=== PATIENT | female | born 1930 | race Two or more races ===

== ENCOUNTER 2017-06-06 14:15 | Observation (INO) | payer MEDICARE, OTHER ==
[2017-06-06] MEDS ORDERED: NS 0.9% 1000 ML* 1,000 ML IV ONE (14:55)
[2017-06-06] MEDS ORDERED: Diltiazem IV* 5 MG/ML 5 ML VIAL (for loading dose/IV Push) (25 MG) IV PUSH ONE (14:55)
[2017-06-06] MEDS ORDERED: Digoxin IV* 0.5 MG/2 ML AMP (0.25 MG/ML) IV ONE (14:55)
[2017-06-06 15:15] LABS: Hematocrit 39 % (35-47); Hemoglobin 12.8 g/dl (12.0-16.0); Mean Corpuscular HGB Conc 33 g/dl (31-36); Mean Corpuscular Hemoglobin 33 pg (27-31); Mean Corpuscular Volume 99 fL (80-97); Mean Platelet Volume 9 um3 (7.4-10.4); Red Blood Count 3.93 10^6/ul (4.0-5.4); Red Cell Distribution Width 14 % (10.5-15); White Blood Count 5.1 10^3/ul (3.5-10.8)
[2017-06-06 15:31] LABS: Albumin 3.6 g/dL (3.2-5.2); BUN/Creatinine Ratio 21.4 (8-20); Calcium 8.5 mg/dL (8.6-10.3); EGFR African American 82.9 (>60); EGFR Non-African American 64.4 (>60); Globulin 2.4 g/dL (2-4); Magnesium 1.8 mg/dL (1.9-2.7); Potassium 3.8 mmol/L (3.5-5.0); Total Bilirubin 0.9 mg/dL (0.2-1.0)
[2017-06-06 16:09] LABS: TSH (Thyroid Stimulating Horm) 5.15 mcIU/mL (0.34-5.60)
[2017-06-06] MEDS ORDERED: Diltiazem DRIP* 100 MG/100 ML ADDV.BAG IVPB ONE ×2 (16:09→16:10)
[2017-06-06] MEDS ORDERED: Enoxaparin(*) 60 MG/0.6 ML SYR SUBCUT ONE (16:37)
[2017-06-06] MEDS ORDERED: Ondansetron INJ* 2 MG/ML VIAL IV PRN (17:38)
[2017-06-06] MEDS ORDERED: Acetaminophen TAB* 325 MG PO PRN (17:38)
[2017-06-06] MEDS ORDERED: Magnesium Sulfate 2 GM IV* 2 GM/50 ML BAG IVPB ONE (17:38)
[2017-06-06] MEDS ORDERED: Diltiazem TAB* 30 MG ONE (17:47)
[2017-06-06] MEDS ORDERED: Diltiazem TAB* 30 MG PO SCH ×2 (18:00)
[2017-06-06] MEDS ORDERED: Diltiazem DRIP* 100 MG/100 ML ADDV.BAG IVPB SCH ×2 (18:00→19:00)
[2017-06-06 18:11] LABS: C Reactive Protein 1.13 mg/L (< 5.00)
[2017-06-06 18:34] LABS: Erythrocyte Sed Rate 5 mm/Hr (0-40)
--- NOTE | 2017-06-06 18:44 | RAD ---
INDICATION: Atrial fibrillation COMPARISON: February 10, 2011 TECHNIQUE: An AP portable view obtained at 1814 hours is submitted. FINDINGS: Bones/Soft Tissues: There are no acute bony findings. There is a scoliotic deformity. Cardiomediastinal: The cardiomediastinal silhouette is normal. Lungs: There are no infiltrates. Pleura: There are no pleural effusions. Other: None IMPRESSION: NO ACTIVE DISEASE.
[2017-06-06] MEDS: Potassium Chlor TAB* 20 MEQ TAB.ER PO ONE ×2 (19:47→20:38)
--- NOTE | 2017-06-06 20:15 | PN ---
Hospitalist Progress Note called for hr dropping to 50's, and having a 3 second pause also patient stating she feels flushed hr 67 now and irregular, flushing started with magnesium iv infusion, hold iv mag, hold dilt drip, hold po atenelol, for now, bp 109/60 stable, will follow closely,
[2017-06-06] MEDS ORDERED: Atenolol TAB* 50 MG PO SCH (21:00)
--- NOTE | 2017-06-06 22:19 | PN ---
Hospitalist Progress Note Dilt drip stopped due to pauses and HR down to 50 at times ? if dig contributing. Discussed with attending Dr silvestre. Will given prn lopressor now given patient has been on beta ester outpatient. Hr now persisting in the 110 '-130's.
[2017-06-06] MEDS ORDERED: Metoprolol Tartrate IV* 1 MG/ML 5 ML VIAL IV PRN (22:20)
--- NOTE | 2017-06-06 22:27 | HP ---
CC: Dr. Barron * HISTORY AND PHYSICAL: DATE OF ADMISSION: 06/06/17 PRIMARY CARE PROVIDER: None. ATTENDING PHYSICIAN WHILE IN THE HOSPITAL: Dr. López Oconnor * (report dictated by Bimal Cedeno NP). CONSULTING ACCOUNTING PROFESSIONAL: Dr. Barron. CHIEF COMPLAINT: Irregular heartbeat. HISTORY OF PRESENT ILLNESS: Ms. Bedolla is an 87-year-old female patient. She has a history of hypertension; paroxysmal AFib; uterine cancer, status post hysterectomy; history of breast cancer, status post lumpectomy; history of chronic lower extremity lymphedema, who comes in to our ER today stating that today, this morning when she woke up, she felt more tired than usual. She says the holiday had taken a lot out of her. She did not drink any extra wine. She says she typically drinks 1 glass of wine a night. She says on , she only had 1 glass that she normally does. She woke up today, although she has just felt like she was tired from the festivity. She went to get ready to go to an appointment for her dentist for routine cleaning. It was around 12:30 and 12:45, when she started moving around, she felt like her heart was racing. She was having palpitations. She checked her pulse and she noted that it was irregular. She called her daughter. She was concerned for this and 911 was summoned and she was brought into the ER, found to be in AFib with RVR. She denied any chest pain. She did state that when her heart rate was in the 130s, she was feeling slightly short of breath, but that is now subsided since her heart rate has been under control. She denies having any chest discomfort. She says the only change in medication recently is she took artificial tears. She did have an extra cup of coffee today because she felt tired. She also did have a cup of tea this morning as well. She does state that she also took her medication late, her atenolol, but she has not missed the dose. She denies being on any blood thinners but because of the fact she came in, it was found that she was in AFib with RVR, she was requiring IV diltiazem for rate control and we were asked to evaluate for admission. She does admit to having a new- onset rash to her neck and in the front of her chest and also to her face. She states that the rash underneath her eyes comes and goes. It has been going on for several months now, but the one to her chest and one to her neck are now new. She says she has recently been on new soap. She says it does not itch. She has no sores in her mouth. She does state that she did start taking artificial tears for her dry eye on the left eye, as she says which seems like the breakout happened after the artificial tears according to the patient, but no other new medications. She denies having a rash anywhere else. She says there has not been any blistering to her knowledge. She again denies any pruritus; this was another complaint that she had and again, the AFib was what really brought her in to the hospital today. PAST MEDICAL HISTORY: Significant for: 1. Hypertension. 2. AFib. 3. Uterine cancer. 4. Lymphedema. 5. Breast cancer. PAST SURGICAL HISTORY: She has had: 1. Hysterectomy. 2. Lumpectomy. 3. Right total hip arthroplasty. 4. Appendectomy. 5. She has had vein stripping. MEDICATIONS: The home meds according to the list that she provided includes atenolol 50 mg p.o. twice a day. ALLERGIES TO MEDICATIONS: Include SULFA. FAMILY HISTORY: Mother had a history of CVA. Father had a history of lung cancer. SOCIAL HISTORY: She does not smoke. She does drink wine daily. She does drink caffeine. Surrogate decision maker is her daughter and her . REVIEW OF SYSTEMS: There is no documented fever. She denied any significant weight change. There was no double vision. There is no ear discharge. She denies having any rhinorrhea. No sore throat. No thyroid enlargement. She denies having any chest pain. There is no orthopnea. She denies having any nocturnal dyspnea. There was no abdominal pain. No nausea, no vomiting. There is no dysuria, no frequency. There is no seizure, no loss of consciousness. No pruritus and there are no skin ulcerations. Review of 14 systems was completed, all others negative. PHYSICAL EXAMINATION GENERAL: At this time, Ms. Bedolla is an 87-year-old female patient. She appears to be well nourished, well developed. She does not appear to be in any acute distress. VITAL SIGNS: Blood pressure 113/86, pulse of 88, respirations 20, O2 sat 98%, temperature 98.8. HEENT: Head is atraumatic and normocephalic. Eyes: EOMs are intact. Her sclerae were anicteric and not pale. She does have some erythema to the left lower eyelid. There is no discharge noted. The sclera did not appear to be affected. Throat: Oral mucosa appears to be dry. No oropharyngeal erythema. There are no oral mucosa sores. LUNGS: Clear to auscultation bilaterally. No wheezes, rales, or rhonchi. HEART: Sounds S1, S2. Irregularly irregular rate. No murmurs, rubs, or gallops. ABDOMEN: Soft. It was flat, nontender. Bowel sounds are present. EXTREMITIES: Pulses were 2+ throughout. She is moving all 4 extremities with 5 /5 strength. NEUROLOGIC: The patient is awake, she is alert, she is oriented x3. Her tongue is midline. Her range technician were equal. She had no gross focal deficits. SKIN: Grossly intact. DIAGNOSTIC STUDIES/LAB DATA: Labs today revealed a WBC of 5.1, RBC of 3.93, hemoglobin 12.8, hematocrit 39, platelet count of 198. The INR was 0.98, the PTT was 28.4. Sodium is 139, potassium 3.8, chloride 110, bicarb 22, BUN 18, creatinine 0.84, glucose 124, calcium 8.5, mag 1.8. Total bili 0.9, AST 15, JODY 7, alk phos 36. Troponin 0. TSH is normal. She did have an EKG obtained today initially, which showed atrial fibrillation with a rate of 126. No ST elevations or T-wave inversions were noted. Old medical records were reviewed. ASSESSMENT AND PLAN: Ms. Bedolla is an 87-year-old female patient coming in to the ER today with complaints of irregular heartbeat. On evaluation, found to be in atrial fibrillation with rapid ventricular response. She will be admitted under observation status for: 1. Atrial fibrillation with rapid ventricular response. She was given cardizem drip and given IV digoxin and also given Lovenox subcu. I am going to start her on Eliquis twice a day starting tomorrow. I am going to convert the drip over to 30 p.o. every 6 hours. Cardiology did recommend continuing the drip, but p.o. is already initiated down here in the emergency department, so I am going to continue with p.o. down here and if she does require higher doses, then I would convert back to the drip and we will continue to follow. Her heart rate now is between 80s and 70s. So, hopefully, she converts overnight. Her mag was a little low at 1.8. We will get this replaced. Her potassium is a little low as well at 3.8. I would like to try to get that around 4. We will give her some p.o. magnesium, get Cardiology involved, and we will place her on telemetry and continue to follow her closely and continue her atenolol. 2. Rash. Again, the rash does appear to be again mostly to the neck and to the chest. It appears to be raised. It is blanchable. There does not appear to be any bullae noted. There is no pruritus. It does appear to be erythematic. My plan is to go ahead and monitor this. It could just be dermatitis. I would check an ESR and a CRP as well as JEIMY because she was complaining of a facial rash just underneath her eyes that comes and goes and we will continue to monitor. If it does worsen, we could consider getting punch biopsy possibly for further evaluation. Holding on artificial tears as this seemed to have happened when this was started. In addition to this, it could be related to the soap that she recently tried. We will continue to follow. 3. Hypertension. Continue meds as prescribed. 4. History of breast cancer and uterine cancer. Follow with primary. 5. Lymphedema. It is a chronic issue. We will continue with the current medical regimen. 6. DVT prophylaxis. She got 60 of Lovenox here in the ED. We will continue Eliquis tomorrow. 7. Fluids, electrolytes, and nutrition. She can have a heart-healthy diet and should be n.p.o. after midnight for possible BEBETO-guided cardioversion in the morning. TIME SPENT: On the admission was approximately 60 minutes; greater than half the time spent [id number] with the patient obtaining my history and physical, the other half time was spent going over the plan of care with the patient and implementing plan of care. I did discuss the plan of care with my attending, Dr. Oconnor; he is in agreement. BIMAL CEDENO NP [id number]/[facility] #: [id number] KELVIN
[2017-06-06] MEDS: Atenolol TAB* 50 MG PO SCH (23:14)
[2017-06-07] MEDS ORDERED: Diltiazem TAB* 30 MG PO SCH
[2017-06-07] MEDS ORDERED: NS 0.9% 500 ML* 500 ML IV ONE (00:59)
[2017-06-07 06:11] LABS: Hematocrit 38 % (35-47); Hemoglobin 12.7 g/dl (12.0-16.0); Mean Corpuscular HGB Conc 33 g/dl (31-36); Mean Corpuscular Hemoglobin 33 pg (27-31); Mean Corpuscular Volume 99 fL (80-97); Mean Platelet Volume 9 um3 (7.4-10.4); Red Blood Count 3.85 10^6/ul (4.0-5.4); Red Cell Distribution Width 14 % (10.5-15); White Blood Count 5.3 10^3/ul (3.5-10.8)
[2017-06-07 06:20] LABS: Calcium 8.7 mg/dL (8.6-10.3); EGFR African American 94.5 (>60); EGFR Non-African American 73.4 (>60); Magnesium 2.1 mg/dL (1.9-2.7); Potassium 3.9 mmol/L (3.5-5.0)
[2017-06-07] MEDS: Atenolol TAB* 50 MG PO SCH (07:46)
[2017-06-07] MEDS ORDERED: Flumazenil* 0.1 MG/ML 5 ML MDV ONE (08:16)
[2017-06-07] MEDS ORDERED: fentaNYL* 50 MCG/ML 2 ML VIAL (100 MCG VIAL) ONE (08:16)
[2017-06-07] MEDS ORDERED: Naloxone* 0.4 MG/ML 1 ML VIAL ONE (08:16)
[2017-06-07] MEDS ORDERED: Lidocaine 2% VISCOUS* 15 ML UDC ONE (08:17)
[2017-06-07] MEDS ORDERED: Midazolam* 1 MG/ML 10 ML VIAL (10 MG) ONE (08:17)
[2017-06-07] MEDS ORDERED: Ondansetron INJ* 2 MG/ML VIAL ONE (08:40)
[2017-06-07] MEDS ORDERED: Apixaban* 5 MG TAB PO SCH (09:00)
--- NOTE | 2017-06-07 12:07 | CARD ---
CC: Primary Care Physician ELECTRICAL CARDIOVERSION: DATE OF PROCEDURE: 06/07/17 PROCEDURE: Electrical cardioversion. INDICATION: Atrial fibrillation. DESCRIPTION OF PROCEDURE: The indications, risks, and benefits of the procedure were discussed with the patient. She had a combined transesophageal echo followed by cardioversion and risks and benefit s of both procedures and a time-out for both procedures were done. The transesophageal echo will be documented separately, but there was no thrombus noted in the left atrial appendage and the decision was made to proceed with electrical cardioversion. The patient had already received a total of 7 mg of Versed and 50 mcg of fentanyl. Using AP patches, 150 joules was delivered across the chest wall with successful cardioversion of Tomás b around 120 beats per minute to normal sinus rhythm and the patient was hemodynamically stable throu ghout the procedure. There were no complications. Currently, the patient is in sinus rhythm at 68 beats a minute, oxygen saturation 98% on 2 L nasal ca nnula and blood pressure 110/58. CONCLUSION: Successful cardioversion. No complications. [id number]/[facility] #: [id number]
--- NOTE | 2017-06-07 12:57 | TEE ---
Patient: ITA KINCAID [facility] Rec#: [id number] : 1930 Date: 06/07/2017 Age: 87y Height: 160 cm / 63.0 in Weight: 61 kg / 134.4 lbs Sex: F BSA: 1.63 Room#: [facility] Admit Date#: 06/06/2017 Type: Inpatient Referring: Bimal Cedeno NP Performing: Mari Waller MD Reading: Mari Waller MD Customer Liaison: Taylor Bernard RD,RDMS Nurse: Chantel Mckoy Transesophageal Echocardiogram Indication: AFIB BP: 116/65 HR: 100 Rhythm: A-Fib Findings History: AFIB, HTN, lymphedema, breast cancer Technical Comments: The study quality is good. Left Ventricle: The left ventricular chamber size is normal. Global left ventricular wall motion and contractility are within normal limits. The estimated ejection fraction is 55-60%. The assessment of diastolic function is non-diagnostic. Left Atrium: The left atrium is moderately dilated. There is no thrombus visualized in the left atrial appendage. Right Ventricle: The right ventricular chamber size and systolic function are within normal limits. Right Atrium: The right atrium is moderately dilated. A prominent eustachian valve is noted in the right atrium. A patent foramen ovale is demonstrated by agitated contrast. Aortic Valve: The aortic valve is trileaflet. Mild aortic cusp sclerosis is present. There is a trace of aortic regurgitation. There is no evidence of aortic stenosis. Mitral Valve: The mitral valve leaflets appear normal. There is mild to moderate mitral regurgitation. There is no evidence of mitral stenosis. Tricuspid Valve: The tricuspid valve leaflets are normal. There is mild to moderate tricuspid regurgitation. No pulmonary hypertension is noted. Pulmonic Valve: The pulmonic valve appears normal. There is no evidence of pulmonic regurgitation. Pericardium: There is no significant pericardial effusion. Aorta: The aortic root appears normal. Pulmonary Artery: The main pulmonary artery appears normal. Venous: The inferior vena cava appears normal. The flow pattern of the pulmonary veins appear normal. 3 out of 4 well visualized The superior vena cava appears normal. BEBETO Procedures: All standard views were attempted within the limitations of patient tolerance and safety. History and physical as well as labs were reviewed. The patient was in a fasting state. Risks and benefits of the procedure, including alternatives, were discussed and written informed consent was obtained. The patient and/or their health care circulation representative expressed understanding of the procedure, risks and benefits. Baseline and continuous monitoring of blood pressure, heart rate, pulse oximetry and heart rhythm was performed throughout the procedure. The appropriate time-out procedure was performed as per [facility] protocol. The patient was placed in the left lateral decubitus position. The patient's posterior pharynx was anesthetized with 20ml of 2% viscous lidocaine. The patient received IV Midazolam with a total dose of 7 mg The patient received IV Fentanyl with a total dose of 50 mcg An oral bite block was inserted for protection of oral dentition. The multiplane transesophageal echocardiogram probe was inserted through the posterior oropharynx and advanced into the esophagus without difficulty. Multiple 2D images were obtained of the heart and its related structures. Color flow Doppler was used for evaluation. Spectral Doppler was also used. The atrial septum was interrogated with color flow Doppler. At the conclusion of the procedure the probe was removed with continuous suction without complications. The patient tolerated the procedure with no apparent complications. Contrast: Intravenous agitated saline contrast was used to assess intracardiac shunting. Image 54 Conclusions The patient was in atrial fibrillation throughout the study. The left ventricular chamber size is normal. Global left ventricular wall motion and contractility are within normal limits. The estimated ejection fraction is 55-60%. The right ventricular chamber size and systolic function are within normal limits. There is no thrombus visualized in the left atrial appendage. A patent foramen ovale is demonstrated by agitated contrast. Moderate biatrial enlargement. There is a trace of aortic regurgitation. There is mild to moderate mitral regurgitation. There is mild to moderate tricuspid regurgitation. Prior echo not available for comparison. Measurements Name Value Normal Range Ao root diameter (2D) 1.98 cm (2.1 - 3.5) Ascending Ao 2.96 cm (2.1 - 3.4) Name Value Normal Range MV E-wave Vmax 0.98 m/sec - MV deceleration time 113.72 msec - MV A-wave Vmax 0.02 m/sec - MV E:A ratio 45.45 ratio - Name Value Normal Range TR Vmax 2.2 m/sec - TR peak gradient 19.32 mmHg -
[2017-06-07 16:06] VITALS: BP 129/65
--- NOTE | 2017-06-07 17:04 | DCNOTE ---
Patient seen this morning and again the afternoon. Successful cardioversion this morning and has remained in NSR. Denies pain. On exam, RRR s1 and s2 present, no m/g/r, lungs CTA B/L, no w/r/r, abd soft, NTND, BS+, erythematous rash over neckline some on R chin Discharge home on Eliquis and Atenolol. Will rx steroid cream for presumed contact dermatitis, if worsens may benefit from ABx. F/U with Dr. Waller and new PCP.
[2017-06-07] MEDS ORDERED: Apixaban* 2.5 MG TAB PO ONE (17:30)
[2017-06-07] MEDS ORDERED: Potassium Chloride LIQUID* 20 MEQ PACKET PO ONE (20:56)
[2017-06-07] MEDS ORDERED: Apixaban* 2.5 MG TAB PO SCH (21:00)
--- NOTE | 2017-06-08 12:50 | DS ---
CC: Dr. Ana Ren * DISCHARGE SUMMARY: DATE OF ADMISSION: 06/06/17 DATE OF DISCHARGE: 06/07/17 PRIMARY CARE PHYSICIAN: The patient has no PCP at this time. We will try to set up with Dr. Ana Ren. PRINCIPAL DISCHARGE DIAGNOSES: 1. Atrial fibrillation with rapid ventricular rate. 2. Contact dermatitis. SECONDARY DIAGNOSES: 1. Hypertension. 2. History of atrial fibrillation. DISCHARGE MEDICATIONS REGIMEN: 1. Atenolol 50 mg by mouth 2 times daily. 2. Triamcinolone 1 application topical 2 times daily. 3. Apixaban 2.5 mg by mouth 2 times daily. CONSULTATIONS DURING HOSPITALIZATION: Dr. Mari Waller, Cardiology. STUDIES DONE DURING HOSPITALIZATION: Chest x-ray, impression: No active disease. Transesophageal echocardiogram. Conclusion: The patient was in AFib throughout the study. Left ventricular chamber size is normal. Global left ventricular wall motion and contractility within normal limits. Estimated ejection fraction 55% to 60%. Right ventricular chamber size is and systolic function within normal limits. No thrombus visualized in the left atrial appendage. A patent foramen ovale is demonstrated by agitated contrast, moderate biatrial enlargement. Trace aortic regurgitation, mild mitral regurgitation, [id number] tricuspid regurgitation. Successful cardioversion to normal sinus rhythm after delivery of 150 joules. HISTORY OF PRESENT ILLNESS AND HOSPITAL SUMMARY: Please see full history and physical by Bimal Cedeno NP, for full details. Briefly, Ms. Bedolla is an 87- year-old female with past medical history as above, who presented to the hospital with sensation of her heart racing. She noted her pulse was irregular , called EMS and her daughter. She was brought to the hospital. She was found to be in AFib with heart rates in the 130s. She received IV digoxin and diltiazem in the emergency department and was transitioned to oral medications. However, she subsequently developed sinus pause of about 3 seconds and also felt flushed after she received IV magnesium. Her diltiazem drip and oral medications were held. Cardiology was consulted and Dr. Waller took the patient for cardioversion the following day. This was successful and the patient remained in normal sinus rhythm throughout the hospital stay. She was restarted on her home atenolol and started on Eliquis 2.5 mg by mouth 2 times daily. The patient was instructed to try to avoid all caffeine and alcohol. She states she drinks 1 glass of wine with dinner at times, although her daughter states that she drinks much more than she lets on. The patient also had a rash that had been present for few days over her chest mostly some on lower chin as well. It was felt that this may be a contact dermatitis. The patient will be started on topical steroids. She was told to monitor the rash and if worsened, she should stop the steroids, as she may need antibiotics. The patient should follow up with Dr. Waller. She has no PCP at this time and was provided the number for Dr. Ana Ren as well as coremaking machine setter, Dr. Franchesca Lincoln. TIME SPENT: Total time spent on this discharge 45 minutes. This is a summary of the hospitalization, please see the full medical record for further details. [id number]/[facility] #: [id number] MTDD
--- NOTE | 2017-06-08 15:26 | CONS ---
CONSULTATION REPORT: DATE OF CONSULT: 06/07/17 REASON FOR CONSULTATION: Atrial fibrillation. CHIEF COMPLAINT: Fluttering and racing of the heart. HISTORY OF PRESENT ILLNESS: Ms. Bedolla is an 87-year-old woman who I followed in the office with a history of paroxysmal atrial fibrillation. The patient states that she was in her usual state of health, had Thanksgiving with her daughter and family on , then was supposed to go to an appointment on Monday and was getting ready to go when she noticed that her heart was racing. She called the ambulance, presented to the emergency department, and EKG there confirmed she was in atrial fibrillation with a rapid ventricular rate. Overnight, she was started on Eliquis and initially attempts were made to rate control her with diltiazem, but this led to depression and blood pressure, so this was stopped. Currently today, she is somewhat aware of the rhythm although at rest she feels better. The patient had a rash on her face and when queried she stated that the rash has only been present a couple of days and seemed to correlate with the onset of her AFib. She wondered if it could be related to some artificial tears she was using in the left eye though was vague. The patient continues to drink a glass of wine at night and states she had not had any increased alcohol, her daughter later told me that her mother drinks more than one glass of wine a night. The patient denies any recent umwq-hxw-gqzuhit cold medications. She did say she was late with her atenolol dose once, but typically this has not led to problems. PAST MEDICAL HISTORY: The patient has a past medical history of atrial fibrillation 2010, atenolol initiated, intolerant to metoprolol and anticoagulation was elected not to be used by the patient because of rust colored vaginal secretions in the past; history of migraines; varicose veins; lower extremity edema; hypertension; uterine cancer status post radiation therapy. She has intermittent diarrhea related to the radiation therapy. PAST SURGICAL HISTORY: Vein stripping, total hip arthroplasty, right lumpectomy , and hysterectomy. OUTPATIENT MEDICATIONS: Include, 1. Atenolol 50 mg b.i.d. 2. Tamoxifen 10 mg b.i.d. 3. Imodium AD p.r.n. ALLERGIES: Include CODEINE, SULFA, and OXYCONTIN. FAMILY HISTORY: Significant that her mother had a history of stroke, her father has a history of lung cancer. She has a supportive daughter in the area. SOCIAL HISTORY: The patient is , lives with her spouse. Never smoked. Alcohol, one glass of wine weekly per patient. Occasional coffee and tea. REVIEW OF SYSTEMS: As above. Negative for recent fevers, chills, sweats. Positive for the rash on her chin and upper chest. No recent change in bowel or bladder habits. No recent shortness of breath, chest pain, pressure, heaviness other than the awareness of the racing of the heart documented earlier in the history of present illness. All other 14-point review of systems was unremarkable. PHYSICAL EXAM: The patient is 5 feet 4 inches, weighs 129 pounds with a BMI of 22. On arrival, the patient's blood pressure is 124/80 with a pulse of 136, respiratory rate is 20, oxygen saturation 100% on 2 L nasal cannula, and temperature 98.8. General Appearance: Elderly woman seated at 30 degrees in no acute distress. Psychologically, pleasant and cooperative. Neurologically, somewhat vague with her answers but awake, alert, oriented to person, place, and time. Somewhat hard of hearing. Cranial nerves otherwise intact. Grossly normal sensory and motor function in the upper and lower extremities. She moves well in bed. Skin: A maculopapular rash noted in the chin covering both sides of the chin, the left eye, and on the upper portion of the anterior chest/ lower neck. No evidence of cyanosis of the nail beds. HEENT: Pupils are equal and round. Mucous membranes moist. Neck: Without appreciable increased JVP. Breath sounds were clear with good effort. No wheezes, rales, or rhonchi. Coronary: S1, S2. Irregularly irregular but no murmurs appreciated. Abdomen: Soft and nontender. Lower extremities were free of any edema. DIAGNOSTIC STUDIES/LAB DATA: A 12-lead ECG on arrival in the emergency department on 06/06 confirmed that she has atrial fibrillation with a rapid ventricular rate of 126 beats a minute, QRS axis is 0 with normal intraventricular conduction times and ST segment is unremarkable. Labs: White count 5.3, hemoglobin 12.7, platelets 207. INR 0.98, PTT 28.4. Sodium 139, potassium 3.9, chloride 111, bicarb 21, BUN 15, creatinine 0.75, glucose 95 (improved from 124 on admission). Magnesium initially 1.8 and now 2.1. ALT of 7. C-reactive protein 1.13. TSH 5.15. Transesophageal echo while in AFib showed preserved ventricular function. She had left ventricular ejection fraction of 55% to 60%, znas-yv-fvoocalb mitral insufficiency, sjwr-pm-oqtjpahy tricuspid insufficiency, biatrial enlargement, and a patent foramen ovale was noted with a bubble study. She had no thrombus in the left atrial appendage. ASSESSMENT AND PLAN: In summary, Roya Bedolla is an 87-year-old woman, who presented with atrial fibrillation with a rapid ventricular rate of uncertain duration but possibly having started the day of admission upon awakening. The patient underwent successful transesophageal echo-guided cardioversion and is currently in normal sinus rhythm. Factors that could contribute to recurrence of atrial fibrillation include a delayed dose of atenolol, continued use of alcohol, age, and valvular insufficiency. She may have awoken with the rhythm disorder, it is also possible that a sleep disturbance, possibly sleep apnea is contributing. After discussion with the patient, I told her I felt it was very important that she leave on the Eliquis that was started in the hospital for stroke prevention and she was agreeable to this. Additionally, we discussed the antiarrhythmics initiation prior to cardioversion and she is not really sure she was ready to make this decision and in reviewing her office notes she was intolerant to metoprolol and stronger antiarrhythmic such as Multaq, sotalol, propafenone were never trialed. The current plan will be to leave her on her atenolol for now. Alcohol abstinence was recommended. She expressed that she only drinks white wine and does not feel she drinks a lot. So, we will follow up with alcohol recommendations in the office. We can in addition to discussing initiation of stronger antiarrhythmics and atenolol and the possibility for consideration of a sleep study. The rash was noted and it is uncertain to me if this is some sort of contact dermatitis or infection, but it was present on arrival to the hospital and her outpatient medications were all old and it does not have the appearance of a drug rash, and I have a low suspicion that there is a direct contribution or correlation with the rash and onset of atrial fibrillation. [id number]/[facility] #: [id number] [facility]Jose
== END 2017-06-07 17:54 | disposition home or self-care (01) ==
LOC: ED 14:15 → MEDTELE 17:36
PROVIDERS: ADMIT Internal Medicine; ATTEND Hospitalist
DX: I48.91 Unspecified atrial fibrillation (principal); Z79.01 Long term (current) use of anticoagulants; L25.9 Unspecified contact dermatitis, unspecified cause; I10 Essential (primary) hypertension; Z79.899 Other long term (current) drug therapy; Z88.2 Allergy status to sulfonamides; Z88.5 Allergy status to narcotic agent; Z85.42 Personal history of malignant neoplasm of other parts of uterus; I89.0 Lymphedema, not elsewhere classified; R94.31 Abnormal electrocardiogram [ECG] [EKG]
CPT/HCPCS: 36415; 71010; 80048; 80053; 83735; 84443; 84484; 85025; 85610; 85652; 85730; 86038; 86140; 92960; 93005; 93312; 93325; 96365; 96367; 96375; 96376; 99156; 99157; 99284; A9270-GY; G0378; J1160; J1650; J2250; J2310; J2405; J3010; J3475; J3490

== ENCOUNTER 2017-11-20 16:42 | Emergency (ER) | payer MEDICARE, OTHER ==
[2017-11-20] MEDS ORDERED: Acetaminophen TAB* 325 MG PO ONE (17:13)
--- NOTE | 2017-11-20 17:48 | RAD ---
INDICATION: Atraumatic right hip pain. History of right hip arthroplasty COMPARISON: Lateral hips November 22, 2012 TECHNIQUE: An AP view of the pelvis and AP views of the hip in neutral and abducted position were obtained FINDINGS: Bones: There are no acute bony findings. There is interval right hip arthroplasty, however. There is degenerative change of the lower lumbar spine. Joint spaces: The left hip articulates normally. SI joints/symphysis: The SI joints and symphysis are intact. Other: Surgical clips project over the minor pelvis. IMPRESSION: RIGHT HIP ARTHROPLASTY. NO ACUTE FINDINGS.
--- NOTE | 2017-11-20 18:26 | ED ---
Lower Extremity - HPI Summary HPI Summary: 87-year-old female presents with right hip pain for the past day. States started when she got out of her car. She denies any injury. She states pain got worse. Pain is worse them ambulation. She has history of his replacement on that side in [place]. She denies any loss of bowel or bladder. She denies any saddle anesthesia. She denies any pain with urination. She denies any back pain. She has not taking anything for her symptoms. She states she has no pain at rest. Hurts worse when she tries to have her leg flat. No history of hip pain recently. No fevers. No other complaints. No numbness or tingling. - History of Current Complaint Chief Complaint: EDHipPelvisInjury Stated Complaint: RT HIP PAIN Time Seen by Provider: 11/20/17 17:02 Pain Intensity: 2 - Allergies/Home Medications Allergies/Adverse Reactions: Allergies Allergy/AdvReac Type Severity Reaction Status Date / Time Sulfa (Sulfonamide Allergy Fever Verified 11/20/17 16:56 Antibiotics) narcotic Allergy Hallucinati Uncoded 11/20/17 16:57 ons Home Medications: Home Medications Dronedarone HCl [Multaq] 400 mg PO BID 11/20/17 [History Confirmed 11/20/17] Hydrocortisone SUPP* [Anusol HC Supp*] 25 mg [place] DAILY 11/20/17 [History Confirmed 11/20/17] PMH/Surg Hx/FS Hx/Imm Hx Endocrine/Hematology History: Denies: Hx Diabetes Cardiovascular History: Reports: Other Cardiovascular Problems/Disorders - AFIB - WELL CONTROLLED ON ATENOLOL Denies: Hx Congestive Heart Failure, Hx Hypertension History: Denies: Hx Dialysis, Hx Renal Disease Musculoskeletal History: Reports: Hx Arthritis - BACK, RIGHT SHOULDER Denies: Hx Osteoporosis Sensory History: Reports: Hx Cataracts, Hx Contacts or Glasses - GLASSES Denies: Hx Deafness, Hx Hearing Aid Opthamlomology History: Reports: Hx Cataracts, Hx Contacts or Glasses - GLASSES - Cancer History Cancer Type, Location and Year: BREAST CA IN 2010 Hx Chemotherapy: No Hx Radiation Therapy: Yes - UTERINE - Surgical History Surgery Procedure, Year, and Place: HYSTERECTOMY 2003. RIGHT BREAST LUMPECTOMY 2010 [facility]. varicose veins 1958,1968. R THR 2012 [facility] Hx Anesthesia Reactions: No Infectious Disease History: No Infectious Disease History: Denies: Traveled Outside the [place] in Last 30 Days - Family History Known Family History: Positive: Other - Glaucoma - Social History Alcohol Use: None Alcohol Amount: EtOH today martini and 2 glasses of wine per Hx Substance Use: No Substance Use Type: Reports: None Hx Tobacco Use: No Smoking Status (MU): Never Smoked Tobacco Review of Systems Negative: Fever Negative: Chest Pain Negative: Shortness Of Breath Positive: Myalgia - hip pain All Other Systems Reviewed And Are Negative: Yes Physical Exam Triage Information Reviewed: Yes Vital Signs On Initial Exam: Initial Vitals Temp Pulse Resp BP Pulse Ox 99.5 F 63 20 150/74 98 11/20/17 16:52 11/20/17 16:52 11/20/17 16:52 11/20/17 16:52 11/20/17 16:52 Vital Signs Reviewed: Yes Appearance: Positive: Well-Appearing Skin: Positive: Warm, Dry Head/Face: Positive: Normal Head/Face Inspection Eyes: Positive: Normal, Conjunctiva Clear Respiratory/Lung Sounds: Positive: Clear to Auscultation, Breath Sounds Present Cardiovascular: Positive: Normal, RRR Musculoskeletal: Positive: Limited @ - right hip, pain greatest when leg is straight, Other - pos [place], tenderness SI joint, no midline tenderness, good pulses, sensation grossly intact Neurological: Positive: Normal Psychiatric: Positive: Normal Diagnostics - Vital Signs Vital Signs Temp Pulse Resp BP Pulse Ox 11/20/17 17:00 59 19 100 11/20/17 16:52 99.5 F 63 18 150/74 100 - Laboratory Lab Statement: Any lab studies that have been ordered have been reviewed, and results considered in the medical decision making process. - Radiology hip Xray Interpretation: No Acute Changes Radiology Interpretation Completed By: Radiologist Lower Extremity Course/Dx - Course Course Of Treatment: 87-year-old female presents with right hip pain for the past day. States started when she got out of her car. She denies any injury. She states pain got worse. Pain is worse them ambulation. She has history of his replacement on that side in [place]. She denies any loss of bowel or bladder. She denies any saddle anesthesia. She denies any pain with urination. She denies any back pain. She has not taking anything for her symptoms. She states she has no pain at rest. Hurts worse when she tries to have her leg flat. No history of hip pain recently. No fevers. No other complaints. No numbness or tingling. X-ray normal. Has full range of motion of hip. Positive [place] test. Will have take Tylenol and follow-up with orthopedic. Patient understands agrees with plan. - Diagnoses Differential Diagnosis/HQI/PQRI: Positive: Fracture (Closed), Sprain, Strain Provider Diagnoses: Right hip pain Discharge - Sign-Out/Discharge Documenting (check all that apply): Discharge/Admit/Transfer - Discharge Plan Condition: Good Disposition: HOME Patient Education Materials: Hip Sprain (ED) Referrals: Ana Ren MD [Primary Care Provider] - Additional Instructions: Take Tylenol every 6 hours as needed for pain Apply ice, rest, elevate Follow up with ortho within 5 days if no improvement use cane to get around Return to ED if develop any new or worsening symptoms - Billing Disposition and Condition Condition: GOOD Disposition: HOME
[2017-11-20 18:58] VITALS: BP 149/71
== END 2017-11-20 18:58 | disposition home or self-care (01) ==
LOC: ED 16:42
DX: M25.551 Pain in right hip (principal); Z88.2 Allergy status to sulfonamides; Z88.5 Allergy status to narcotic agent
CPT/HCPCS: 99282; A9270-GY

== ENCOUNTER 2019-09-09 09:36 | Emergency (ER) | payer MEDICARE, OTHER ==
--- NOTE | 2019-09-09 10:33 | ED ---
Abdominal Pain/Female - HPI Summary HPI Summary: This patient is an 89 y/o female presenting to [facility] via EMS for LLQ abdominal pain. Patient reports she had the urge to have a bowel movement this morning but couldn't. She states she then began to have left lower quadrant abdominal pain. Patient denies nausea, vomiting, chest pain, cough. Patient also denies fevers at home, however in the ED patient has a temperature of 100.9F. PMHx includes atrial fibrillation. Patient's medications include Eliquid, Atenolol. Home Medications Medication Instructions Recorded Confirmed Type Apixaban* [Eliquis*] 2.5 mg PO BID #60 tab 06/07/17 09/09/19 Rx Dronedarone HCl [Multaq] 400 mg PO BID 11/20/17 09/09/19 History Hydrocortisone SUPP* [Anusol HC 25 mg [place] .EVERY 3 DAYS PRN 11/20/17 09/09/19 History Supp*] Atenolol TAB* [Tenormin TAB* 50 MG] 50 mg PO DAILY 09/09/19 09/09/19 History Magnesium Oxide [Magnesium] 250 mg PO DAILY 09/09/19 09/09/19 History - History of Current Complaint Chief Complaint: EDAbdPain Stated Complaint: STOMACH PAIN PER EMS Time Seen by Provider: 09/09/19 10:16 Hx Obtained From: Patient Onset/Duration: Lasting Hours, Still Present Timing: Hours Severity Currently: Mild Pain Intensity: 4 Pain Scale Used: 0-10 Numeric Location: Discrete At: LLQ Radiates: No Character: Sharp Aggravating Factor(s): Nothing Alleviating Factor(s): Nothing Associated Signs and Symptoms: Positive: Fever - in the ED 100.9F, Constipation. Negative: Cough, Chest Pain, Nausea, Vomiting Allergies/Adverse Reactions: Allergies Allergy/AdvReac Type Severity Reaction Status Date / Time Sulfa (Sulfonamide Allergy Fever Verified 11/20/17 16:56 Antibiotics) narcotic Allergy Hallucinati Uncoded 11/20/17 16:57 ons Home Medications: Home Medications Apixaban* [Eliquis*] 2.5 mg PO BID #60 tab 06/07/17 [Rx Confirmed 09/09/19] Dronedarone HCl [Multaq] 400 mg PO BID 11/20/17 [History Confirmed 09/09/19] Hydrocortisone SUPP* [Anusol Hc Supp*] 25 mg [place] .EVERY 3 DAYS PRN 11/20/17 [ History Confirmed 09/09/19] Atenolol TAB* [Tenormin TAB* 50 MG] 50 mg PO DAILY 09/09/19 [History Confirmed 09/09/19] Ciprofloxacin TAB* [Cipro 500 MG TAB*] 500 mg PO BID #20 tab 09/09/19 [Rx] Magnesium Oxide [Magnesium] 250 mg PO DAILY 09/09/19 [History Confirmed 09/09/19 ] metroNIDAZOLE [Flagyl 500 MG TAB] 500 mg PO TID #30 tab 09/09/19 [Rx] PMH/Surg Hx/FS Hx/Imm Hx Endocrine/Hematology History: Denies: Hx Diabetes Cardiovascular History: Reports: Hx Atrial Fibrillation, Other Cardiovascular Problems/Disorders - AFIB- WELL CONTROLLED ON ATENOLOL Denies: Hx Congestive Heart Failure, Hx Hypertension History: Denies: Hx Dialysis, Hx Renal Disease Musculoskeletal History: Reports: Hx Arthritis - BACK, RIGHT SHOULDER Denies: Hx Osteoporosis Sensory History: Reports: Hx Cataracts, Hx Contacts or Glasses - GLASSES Denies: Hx Deafness, Hx Hearing Aid Opthamlomology History: Reports: Hx Cataracts, Hx Contacts or Glasses - GLASSES - Cancer History Cancer Type, Location and Year: BREAST CA IN 2010 Hx Chemotherapy: No Hx Radiation Therapy: Yes - UTERINE - Surgical History Surgical History: Yes Surgery Procedure, Year, and Place: HYSTERECTOMY 2003. RIGHT BREAST LUMPECTOMY 2010 [facility]. varicose veins 1958,1968. R THR 2012 [facility] Hx Anesthesia Reactions: No Infectious Disease History: No Infectious Disease History: Denies: Traveled Outside the US in Last 30 Days - Family History Known Family History: Positive: Other - Glaucoma - Social History Alcohol Use: Occasionally Alcohol Amount: EtOH today martini and 2 glasses of wine per Hx Substance Use: No Substance Use Type: Reports: None Hx Tobacco Use: No Smoking Status (MU): Never Smoked Tobacco Review of Systems Positive: Fever - in the ED 100.9F Negative: Chest Pain Negative: Cough Gastrointestinal: Other - POSITIVE: constipation Positive: Abdominal Pain. Negative: Vomiting, Nausea All Other Systems Reviewed And Are Negative: Yes Physical Exam - Summary Physical Exam Summary: VITAL SIGNS: Reviewed. GENERAL: Patient is a well-developed and nourished female who is lying comfortable in the stretcher. Patient is not in any acute respiratory distress. HEAD AND FACE: No signs of trauma. No ecchymosis, hematomas or skull depressions. No sinus tenderness. EYES: PERRLA, EOMI x 2, No injected conjunctiva, no nystagmus. EARS: Hearing grossly intact. Ear canals and tympanic membranes are within normal limits. MOUTH: Oropharynx within normal limits. NECK: Supple, trachea is midline, no adenopathy, no JVD, no carotid bruit, no c- spine tenderness, neck with full ROM. CHEST: Symmetric, no tenderness at palpation LUNGS: Clear to auscultation bilaterally. No wheezing or crackles. CVS: Regular rate and rhythm, S1 and S2 present, no murmurs or gallops appreciated. ABDOMEN: Soft, left lower quadrant tenderness. No signs of distention. No rebound, no guarding, and no masses palpated. Bowel sounds are normal. EXTREMITIES: FROM in all major joints, no edema, no cyanosis or clubbing. NEURO: Alert and oriented x 3. No acute neurological deficits. Speech is normal and follows commands. SKIN: Dry and warm Triage Information Reviewed: Yes Vital Signs On Initial Exam: Initial Vitals Temp Pulse Resp BP Pulse Ox 100.9 F 74 16 124/81 96 09/09/19 09:44 09/09/19 09:44 09/09/19 09:44 09/09/19 09:44 09/09/19 09:44 Vital Signs Reviewed: Yes Procedures - Sedation Patient Received Moderate/Deep Sedation with Procedure: No Diagnostics - Vital Signs Vital Signs Temp Pulse Resp BP Pulse Ox 09/09/19 09:44 100.9 F 74 16 124/81 96 - Laboratory Result Diagrams: 09/09/19 11:25 09/09/19 11:25 Lab Statement: Any lab studies that have been ordered have been reviewed, and results considered in the medical decision making process. - CT Abdomen/Pelvis CT CT Interpretation Completed By: Radiologist Summary of CT Findings: IMPRESSION: 1. Diverticulitis without loculated fluid collection to suggest abscess. 2. Cholelithiasis. 3. Atherosclerosis. Dr. Bates has reviewed this report. - EKG 10:45 Cardiac Rate: NL - at 84 bpm EKG Rhythm: Sinus Rhythm Summary of EKG Findings: EKG at 1045 shows normal sinus rhythm at [address] elevations. Normal axis. This EKG was interpreted and reviewed by ED physician. Abdominal Pain Fem Course/Dx - Course Course Of Treatment: This patient is an 89 y/o female presenting to [facility] via EMS for LLQ abdominal pain. Patient reports she had the urge to have a bowel movement this morning but couldn't. She states she then began to have left lower quadrant abdominal pain. Patient denies nausea, vomiting, chest pain, cough. Patient also denies fevers at home, however in the ED patient has a temperature of 100.9F. PMHx includes atrial fibrillation. Patient's medications include Eliquid, Atenolol. In the ED course the patient was placed in a engine monitor, IV access was obtained, IV fluids were started. Past medical records reviewed. Blood test w/o a significant abnormality except for WBCs of 11.9, hemoglobin 10.5, hematocrit 33, absolute neutrophils is 10.7. Sodium is 134, glucose 102, BNP is 382. Urinalysis is contaminated. Abdominopelvic CT impression: Diverticulitis without loculated fluid collection to suggest abscess. Cholelithiasis and atherosclerosis. In the ED course and the patient was given Rocephin initially since the patient had a fever. Patient also was given ciprofloxacin and Flagyl for acute diverticulitis. I discussed all the findings and test results with the patient. Patient was instructed to return to the emergency room immediately if any of the symptoms return worsens. Plan of care was discussed with the patient and understands and agrees. All questions were answered at patient satisfaction. There were no further complaints or concerns. Lung exam before discharge: CTA B/L. Good air exchange. No wheezing or crackles heard. CVS: S1 and S2 present. No murmurs appreciated. Patient is alert and oriented x 3. Patient is hemodynamically stable. Patient will be discharged home with follow up PCP in the next 2-3 days. - Diagnoses Provider Diagnoses: Diverticulitis Discharge ED - Sign-Out/Discharge Documenting (check all that apply): Patient Departure - Discharge home - Discharge Plan Condition: Stable Disposition: HOME Prescriptions: Ciprofloxacin TAB* [Cipro 500 MG TAB*] 500 mg PO BID #20 tab metroNIDAZOLE [Flagyl 500 MG TAB] 500 mg PO TID #30 tab Patient Education Materials: Diverticulitis (ED) Referrals: Ana Ren MD [Primary Care Provider] - Additional Instructions: FOLLOW UP WITH YOUR PRIMARY CARE PROVIDER IN 2 DAYS. RETURN TO THE ED FOR ANY NEW OR WORSENING SYMPTOMS. - Billing Disposition and Condition Condition: STABLE Disposition: Home - Attestation Statements Document Initiated by Linh: Yes Documenting Scribe: Elodia Pelletier Provider For Whom Linh is Documenting (Include Credential): Ben Bates MD Scribe Attestation: Elodia Enrique, scribed for Ben Bates MD on 09/09/19 at 2047. Scribe Documentation Reviewed: Yes Provider Attestation: The documentation as recorded by the Elodia neal accurately reflects the service I personally performed and the decisions made by , Ben Bates MD Status of Scribe Document: Viewed
[2019-09-09] MEDS ORDERED: NS 0.9% 1000 ML** 1,000 ML IV ONE (10:35)
--- OUTSIDE RECORDS SUMMARY | 2019-09-09 11:20 | XMS REPORT | Continuity of Care Document ---
:1930 External Reference #:[id number] Author Name Mari Waller M.D. (transmitted by agent of provider Jeannette Guzman) Address [address] [place] [address] Care Team Providers Name Role Phone Ana Ren MD - Family Care Team Information Young Adult Librarian [phone] Medicine Problems Active Problems Provider Date Closed fracture of distal end of radius Jennifer Foley M.D. Onset: Paroxysmal atrial fibrillation Mari Waller M.D. Onset: 11/17/2015 Atrial fibrillation Mari Waller M.D. Onset: 09/09/2013 Social History Type Date Description Comments Sex Unknown Tobacco Use Start: Unknown Never Smoked pt was exposed to Cigarettes secondhand smoke from grandfather and father Smoking Status Reviewed: 09/05/19 Never Smoked pt was exposed to Cigarettes secondhand smoke from grandfather and father ETOH Use Denies alcohol use Stopped 2016 post afib event. ETOH Use Has consumed alcohol per daughter quite a in the past bit. Tobacco Use Start: Unknown Patient has never smoked Recreational Drug Use Denies Drug Use Exercise Type/Frequency Exercises regularly weights, recumbent bike, seasonal daily walking around [facility] Allergies, Adverse Reactions, Alerts Active Allergies Reaction Severity Comments Date Codeine 06/24/2013 Sulfa Antibiotics 06/24/2013 Oxycontin 09/09/2013 Tears Naturale Urticaria 06/22/2017 Medications Active Medications SIG Qnty Indications Ordering Provider Date Multaq take 1 tablet by 90tabs I48.0 Mari Waller, 06/22/2017 400mg Tablets mouth every 12 M.D. hours Atenolol 1 by mouth once 90tabs Mari Waller, 03/18/2013 50mg Tablets a day M.D. Imodium A-D 1/2 tab prn, Unknown 2mg Tablets takes q 2-3 days. Eliquis Take 1 Tablet By 180tabs Maria Dolores Mccann, 2.5mg Tablets Mouth Twice A N.P. Day Magnesium 1 tab by mouth Unknown 250mg Tablets daily Immunizations Description No Information Available Vital Signs Date Vital Result Comment 09/05/2019 1:32pm Height 62.5 inches 5'2.50" Weight 124.00 lb with shoes Heart Rate 82 /min BP Systolic Sitting 130 mmHg Lue reg cuff BP Diastolic Sitting 70 mmHg Lue reg cuff BP Systolic Standing 130 mmHg Lue reg cuff BP Diastolic Standing 72 mmHg Lue reg cuff Respiratory Rate 16 /min BMI (Body Mass Index) 22.3 kg/m2 Ejection Fraction 55-60% date 06/07/17 Moisés 08/02/2019 2:47pm Height 62.5 inches 5'2.50" Weight 124.00 lb with shoes Heart Rate 72 /min left radial BP Systolic Sitting 124 mmHg Lue, reg cuff BP Diastolic Sitting 68 mmHg Lue, reg cuff BP Systolic Standing 124 mmHg Lue, rge cuff BP Diastolic Standing 62 mmHg Lue, rge cuff BMI (Body Mass Index) 22.3 kg/m2 Ejection Fraction 55%-60% echo 06/07/17 Results Test Acquired Date Facility Test Result H/L Range Note Thyroid Panel 09/05/2019 [facility] Free T4 (Free <pending> [address] Thyroxine) [place] [address] [phone] Thyroxine <pending> TSH (Thyroid Stim Horm) <pending> CBC Auto 09/04/2019 [facility] White Blood 5.0 10^3/uL Normal 3.5-10.[address] [place] [address] [phone] Red Blood Count 4.33 10^6/uL Normal 3.70-4.87 Hemoglobin 10.7 g/dL Low 12.0-16.0 Hematocrit 33 % Low 35-47 Mean Corpuscular Volume 77 fL Low 80-97 Mean Corpuscular Hemoglobin 25 pg Low 27-31 Mean Corpuscular HGB Conc 32 g/dL Normal 31-36 Red Cell Distribution Width 16 % High 10-15 Platelet Count 326 10^3/uL Normal 150-450 Mean Platelet Volume 7.8 fL Normal 7.4-10.4 Abs Neutrophils 2.8 10^3/uL Normal 1.5-7.7 Abs Lymphocytes 1.5 10^3/uL Normal 1.0-4.8 Abs Monocytes 0.5 10^3/uL Normal 0-0.8 Abs Eosinophils 0.0 10^3/uL Normal 0-0.6 Abs Basophils 0.0 10^3/uL Normal 0-0.2 Abs Nucleated RBC 0.0 10^3/uL Granulocyte % 57.4 % Lymphocyte % 30.3 % Monocyte % 10.9 % Eosinophil % 0.8 % Basophil % 0.6 % Nucleated Red Blood Cells % 0.0 Comp Metabolic 09/04/2019 [facility] Sodium 141 mmol/L Normal 135-145 Panel [address] [place] [address] [phone] Potassium 4.2 mmol/L Normal 3.5-5.0 Chloride 108 mmol/L Normal 101-111 Co2 Carbon Dioxide 25 mmol/L Normal 22-32 Anion Gap 8 mmol/L Normal 2-11 Glucose 87 mg/dL Normal 70-100 Blood Urea Nitrogen 18 mg/dL Normal 6-24 Creatinine 0.81 mg/dL Normal 0.51-0.95 BUN/Creatinine Ratio 22.2 High 8-20 Calcium 9.1 mg/dL Normal 8.6-10.3 Total Protein 6.8 g/dL Normal 6.4-8.9 Albumin 4.4 g/dL Normal 3.2-5.2 Globulin 2.4 g/dL Normal 2-4 Albumin/Globulin Ratio 1.8 Normal 1-3 Total Bilirubin 0.40 mg/dL Normal 0.2-1.0 Alkaline Phosphatase 75 U/L Normal 34-104 Alt 8 U/L Normal 7-52 Ast 16 U/L Normal 13-39 Egfr Non- 66.9 >60 Egfr 80.9 >60 1 Laboratory test 09/04/2019 [facility] Magnesium 2.0 mg/dL Normal 1.9-2.7 finding [address] [place] [address] [phone] TSH (Thyroid Stim Horm) 5.79 mcIU/mL High 0.34-5.60 1 Because ethnic data is not always readily available, this report includes an eGFR for both -Americans and non- Americans. The National Kidney Disease Education Program (NKDEP) does not endorse the use of the MDRD equation for patients that are not between the ages of 18 and 70, are , have extremes of body size, muscle mass, or nutritional status, or are non- or non-. According to the National Kidney Foundation, irrespective of diagnosis, the stage of the disease is based on the level of kidney function: Stage Description GFR(mL/min/1.73 m(2)) 1 Kidney damage with normal or decreased GFR 90 2 Kidney damage with mild decrease in GFR 60-89 3 Moderate decrease in GFR 30-59 4 Severe decrease in GFR 15-29 5 Kidney failure <15 (or dialysis) Procedures Date Code Description Status 08/28/2019 72235 Holter Monitor Review (24 hr)dr review & interp only Completed 08/20/2019 36464 ECG Monitor/Recording W/Visual Superimposition Scanning Completed 08/20/2019 26661 ECG Monitor/Recording W/Visual Superimposition Scanning Completed 08/02/2019 39304 EKG Tracing & Interpretation Completed Medical Devices Description No Information Available Encounters Type Date Location Provider Dx Diagnosis Office Visit 08/02/2019 [facility] Maria Dolores Mccann, I48.0 Paroxysmal atrial 2:00p N.P. fibrillation R94.31 Abnormal electrocardiogram [ECG] [EKG] Z51.81 Encounter for therapeutic drug level monitoring I10 Essential (primary) hypertension I49.1 Atrial premature depolarization Assessments Date Code Description Provider 09/05/2019 I48.0 Paroxysmal atrial fibrillation Mari Waller M.D. 09/05/2019 D64.9 Anemia, unspecified Mari Waller M.D. 09/05/2019 R94.6 Abnormal results of thyroid function studies Mari Waller M.D. 08/28/2019 I49.1 Atrial premature depolarization Mari Waller M.D. 08/20/2019 I49.1 Atrial premature depolarization Mari Waller M.D. 08/20/2019 I49.1 Atrial premature depolarization Nurse Visit cc 08/02/2019 I49.1 Atrial premature depolarization Mari Waller M.D. 08/02/2019 I48.0 Paroxysmal atrial fibrillation Maria Dolores Mccann N.P. 08/02/2019 R94.31 Abnormal electrocardiogram [ECG] [EKG] Deloris Mahajan.P. 08/02/2019 Z51.81 Encounter for therapeutic drug level Maria Dolores Mccann N.P. monitoring 08/02/2019 I10 Essential (primary) hypertension Maria Dolores Mccann N.P. 08/02/2019 I49.1 Atrial premature depolarization Deloris Mahajan.Harriet. Plan of Treatment 09/05/2019 - Mari Waller M.D.I48.0 Paroxysmal atrial fibrillationComments: Monitor results:Rare to occasional ectopic beats: 12 PVC's, 546 PAC's.Rare short bursts up to 5 seconds of SVT approx 130 bpmFollow up:OV approx 6 months with ECG.Recommendations:Continue Multaq for now for rhythm Continue Eliquis for stroke prevention. Continue all current medications. Avoid alcohol as you are doing.`D64.9 Anemia, unspecifiedNew Labs:Stool Occult Blood, Screen, Ordered : 09/05/19Comments:On Eliquis.Follow up:We will call with results. Keep follow up with Dr Ren this September.Recommendations:Screening test to see if losing blood in the GI tract.R94.6 Abnormal results of thyroid function studies Functional Status Description No Information Available Mental Status Description No Information Available Referrals Description No Information Available
--- OUTSIDE RECORDS SUMMARY | 2019-09-09 11:20 | XMS REPORT | Continuity of Care Document ---
:1930 External Reference #:[id number] Author Name Maria Dolores Mccann N.P. (transmitted by agent of provider Shelby Kramer) [facility] [address] [facility] [place] [address] Care Team Providers Name Role Phone Ana Ren MD - Family Care Team Information Adjunct Psychology Instructor [phone] Medicine Problems Active Problems Provider Date Closed fracture of distal end of radius Jennifer Foley M.D. Onset: Paroxysmal atrial fibrillation Mari Waller M.D. Onset: 11/17/2015 Atrial fibrillation Mari Waller M.D. Onset: 09/09/2013 Social History Type Date Description Comments Sex Unknown Tobacco Use Start: Unknown Never Smoked pt was exposed to Cigarettes secondhand smoke from grandfather and father Smoking Status Reviewed: 08/02/19 Never Smoked pt was exposed to Cigarettes secondhand smoke from grandfather and father ETOH Use Denies alcohol use Stopped 2016 post afib event. ETOH Use Has consumed alcohol per daughter quite a in the past bit. Tobacco Use Start: Unknown Patient has never smoked Recreational Drug Use Denies Drug Use Exercise Type/Frequency Exercises regularly weights, recumbent bike, seasonal daily walking around [facility] Allergies, Adverse Reactions, Alerts Active Allergies [...] Available Vital Signs Date Vital Result Comment 08/02/2019 2:47pm Height 62.5 inches 5'2.50" Weight 124.00 lb with shoes Heart Rate 72 /min left radial BP Systolic Sitting 124 mmHg Lue, reg cuff BP Diastolic Sitting 68 mmHg Lue, reg cuff BP Systolic Standing 124 mmHg Lue, rge cuff BP Diastolic Standing 62 mmHg Lue, rge cuff BMI (Body Mass Index) 22.3 kg/m2 Ejection Fraction 55%-60% echo 06/07/17 01/11/2019 11:35am Height 62.5 inches 5'2.50" Weight 127.12 lb with shoes Heart Rate 70 /min BP Systolic 126 mmHg Ule reg cuff sitting BP Diastolic 70 mmHg Ule reg cuff sitting BP Systolic Sitting 120 mmHg Ule reg cuff standing BP Diastolic Sitting 70 mmHg Ule reg cuff standing BMI (Body Mass Index) 22.9 kg/m2 Ejection Fraction 55-60% Echo 06/07/17 Results Description No Information Available Procedures Date Code Description Status 08/02/2019 65687 EKG Tracing & Interpretation Completed Medical Devices Description No Information Available Encounters Description No Information Available Assessments Date Code Description Provider 08/02/2019 I48.0 Paroxysmal atrial fibrillation Maria Dolores Mccann N.P. 08/02/2019 R94.31 Abnormal electrocardiogram [ECG] [EKG] Maria Dolores Mccann N.P. 08/02/2019 Z51.81 Encounter for therapeutic drug level Deloris Mahajan.P. monitoring 08/02/2019 I10 Essential (primary) hypertension Maria Dolores Mccann N.P. 08/02/2019 I49.1 Atrial premature depolarization Maria Dolores Mccann N.P. Plan of Treatment Future Appointment(s):09/05/2019 1:30 pm - Mari Waller M.D. at [facility]08/21/2019 8:30 am - Nurse Visit cc at [facility]2019 10:00 am - Nurse Visit cc at [facility]08/02/2019 - Maria Dolores Mccann N.P.I48.0 Paroxysmal atrial [id number] Abnormal electrocardiogram [ECG] [EKG]Z51.81 Encounter for therapeutic drug level [id number] Essential ( primary) qikokramrzhfP36.1 Atrial premature depolarizationNew Orders:Holter Monitor, Scheduled: 08/20/19Comments:You are in the regular rhythmYou have early beats from the atria.Follow up:OV SF or LS after holter. 1mo Functional Status Description No Information Available Mental Status Description No Information Available Referrals Description No Information Available
--- OUTSIDE RECORDS SUMMARY | 2019-09-09 11:20 | XMS REPORT | Continuity of Care Document ---
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 Osteoarthritis Luiz Beasley MD Onset: 10/30/2012 Atrial fibrillation Luiz Beasley MD Onset: 05/16/2014 Pre-surgery evaluation DOMINGUEZ Corbin Onset: 10/29/2014 Low back pain DOMINGUEZ Corbin Onset: 10/29/2014 Edema DOMINGUEZ Corbin Onset: 10/29/2014 Cough DOMINGUEZ Corbin Onset: 10/29/2014 Problem Onset: Prolapsed internal hemorrhoids Mara Suarez PA-C Onset: 07/31/2019 Social History Type Date Description Comments Sex Unknown Tobacco Use Start: Unknown Patient has never smoked Smoking Status Reviewed: 07/31/19 Patient has never smoked Allergies, Adverse Reactions, Alerts Active Allergies Reaction Severity Comments Date Sulfa Drugs Fever Severe 11/12/2014 Narcotics Shakes Severe 11/12/2014 Codeine 07/05/2016 Inactive Allergies Codeine 03/16/2012 Sulfa 10/30/2012 Medications Active Medications SIG Qnty Indications Ordering Provider Date Atenolol 1 by mouth 30tabs I10 Luiz Beasley 05/07/2013 50mg Tablets every day MD [facility] Unw And I 1 Sup Unknown 25mg Rec Q 3 Days Suppository prn Multaq TK 1 T PO Q 12 Unknown 400mg Tablets H Eliquis Unknown 2.5mg Tablets Immunizations CPT Code Status Date Vaccine Lot # [id number] Given 05/06/2008 Influenza Virus Vaccine, [place] [address] Given 05/01/2007 Influenza Virus Vacc[place], [place] [address] Given 04/18/2006 Pneumovax 62547 Given 05/11/2005 Influenza Virus Vaccine, Split Virus, Im Vital Signs Date Vital Result Comment 07/31/2019 10:05am Height 62.5 inches 5'2.50" Weight 122.00 lb BP Systolic 136 mmHg BP Diastolic 84 mmHg Heart Rate 76 /min BMI (Body Mass Index) 22.0 kg/m2 07/05/2016 11:09am Height 63.5 inches 5'3.50" Weight 127.00 lb BP Systolic 120 mmHg BP Diastolic 78 mmHg Heart Rate 90 /min BMI (Body Mass Index) 22.1 kg/m2 Results Description No Information Available Procedures Description No Information Available Medical Devices Description No Information Available Encounters Description No Information Available Assessments Date Code Description Provider 07/31/2019 K64.8 Other hemorrhoids Mara Suarez PA-C Plan of Treatment No Information Available Functional Status Description No Information Available Mental Status Description No Information Available Referrals Description No Information Available
[2019-09-09 11:38] LABS: ABS Basophils 0.1 10^3/ul (0-0.2); ABS Lymphocytes 0.3 10^3/ul (1.0-4.8); ABS Monocytes 0.7 10^3/ul (0-0.8); ABS Neutrophils 10.7 10^3/ul (1.5-7.7); Hematocrit 33 % (35-47); Hemoglobin 10.5 g/dL (12.0-16.0); Lymphocyte % 2.9 %; Mean Corpuscular HGB Conc 32 g/dL (31-36); Mean Corpuscular Hemoglobin 25 pg (27-31); Mean Corpuscular Volume 77 fL (80-97); Mean Platelet Volume 7.5 fL (7.4-10.4); Platelet Count 308 10^3/uL (150-450); Red Blood Count 4.27 10^6 /uL (3.70-4.87); Red Cell Distribution Width 17 % (10-15); White Blood Count 11.9 10^3/uL (3.5-10.8)
[2019-09-09 11:57] LABS: Albumin 4.2 g/dL (3.2-5.2); Albumin/Globulin Ratio 1.6 (1-3); C Reactive Protein 6.05 mg/L (<8.01); EGFR African American 87.1 (>60); Globulin 2.7 g/dL (2-4); Potassium 3.9 mmol/L (3.5-5.0); Total Bilirubin 1.1 mg/dL (0.2-1.0); Total Protein 6.9 g/dL (6.4-8.9)
[2019-09-09] MEDS ORDERED: Acetaminophen TAB* 325 MG PO ONE (12:08)
[2019-09-09] MEDS ORDERED: Iohexol 300* (CONTRAST) 10 ML SDV IV ONE (12:21)
[2019-09-09] MEDS ORDERED: cefTRIAXone(*) 1 GM in NS 0.9% 50 ML* 50 ML IVPB ONE (12:33)
[2019-09-09 13:05] LABS: Urine Appearance Clear; Urine Bilirubin Negative (Negative); Urine Blood 1+ (Negative); Urine Color Yellow; Urine Glucose Negative (Negative); Urine Ketones 1+ (Negative); Urine Nitrite Negative (Negative); Urine Protein Negative (Negative); Urine Specific Gravity 1.012 (1.010-1.030); Urine Urobilinogen Negative (Negative)
[2019-09-09 13:12] LABS: Urine Bacteria 1+ (Absent); Urine Red Blood Cell 2+(6-10/hpf) (Absent); Urine Squamous Epithelial Cell Present (Absent); Urine White Blood Cell 3+(>20/hpf) (Absent)
[2019-09-09] MEDS ORDERED: Ciprofloxacin 400MG IVPREMIX(* 400 MG/200 ML BAG IVPB ONE (14:06)
[2019-09-09] MEDS ORDERED: metroNIDAZOLE TAB* 250 MG PO ONE (14:07)
[2019-09-09 16:41] VITALS: BP 94/43
== END 2019-09-09 16:41 | disposition home or self-care (01) ==
LOC: ED 09:36
DX: K57.92 Diverticulitis of intestine, part unspecified, without perforation or abscess without bleeding (principal); K80.20 Calculus of gallbladder without cholecystitis without obstruction; I70.90 Unspecified atherosclerosis; I48.91 Unspecified atrial fibrillation; R94.31 Abnormal electrocardiogram [ECG] [EKG]; R10.32 Left lower quadrant pain; R50.9 Fever, unspecified; Z79.899 Other long term (current) drug therapy; Z85.3 Personal history of malignant neoplasm of breast; Z88.2 Allergy status to sulfonamides; Z88.5 Allergy status to narcotic agent
CPT/HCPCS: 36415; 74177; 80053; 81003; 81015; 83605; 83690; 83880; 84484; 85025; 86140; 87086; 93005; 99284; A9270-GY; J0696; J0744; Q9967

== ENCOUNTER 2020-06-25 12:05 | Inpatient (IN) ==
[2020-06-25] MEDS ORDERED: NS 0.9% 1000 ml BAG 1,000 ML IV ONE ×2 (12:07→13:16)
[2020-06-25] MEDS ORDERED: Ondansetron 4 mg VIAL 2 MG/ML 2 ml VIAL ONE (12:31)
[2020-06-25] MEDS ORDERED: Diltiazem (ADVAN VIAL) 100 MG/100 ML ADDV.BAG IV ONE (12:42)
[2020-06-25] MEDS ORDERED: Diltiazem IV push/loading dose 5 MG/ML 5 ML vial (25 mg) IV SLOW PU ONE (12:42)
[2020-06-25 12:43] LABS: ABS Lymphocytes 0.8 10^3/ul (1.0-4.8); ABS Monocytes 0.5 10^3/ul (0-0.8); Eosinophil % 0.2 %; Hematocrit 38 % (35-47); Hemoglobin 12.5 g/dL (12.0-16.0); Mean Corpuscular HGB Conc 33 g/dL (31-36); Mean Corpuscular Hemoglobin 27 pg (27-31); Mean Corpuscular Volume 83 fL (80-97); Mean Platelet Volume 7.9 fL (7.4-10.4); Platelet Count 263 10^3/uL (150-450); Red Blood Count 4.55 10^6 /uL (3.70-4.87); Red Cell Distribution Width 17 % (10-15); White Blood Count 7.3 10^3/uL (3.5-10.8)
[2020-06-25 12:55] LABS: Anion Gap 17 mmol/L (2-11); CO2 Carbon Dioxide 15 mmol/L (22-32); Calcium 8.7 mg/dL (8.6-10.3); Chloride 109 mmol/L (101-111); INR 1.13 (0.82-1.09); Potassium 4.3 mmol/L (3.5-5.0); Sodium 141 mmol/L (135-145)
[2020-06-25 13:00] LABS: ALT 12 U/L (7-52); AST 21 U/L (13-39); Albumin/Globulin Ratio 1.5 (1-3); Alkaline Phosphatase 71 U/L (34-104); BUN/Creatinine Ratio 22.5 (8-20); Blood Urea Nitrogen 18 mg/dL (6-24); Cholesterol 164 mg/dL; EGFR African American 81.9 (>60); EGFR Non-African American 67.7 (>60); Globulin 2.6 g/dL (2-4); Glucose 118 mg/dL (70-100); HDL Cholesterol 74.6 mg/dL; LDL Cholesterol 65 mg/dL; Total Protein 6.6 g/dL (6.4-8.9); Triglycerides 121 mg/dL
[2020-06-25 13:42] LABS: Troponin I 0.04 ng/mL (<0.03)
[2020-06-25 13:45] LABS: Magnesium 1.7 mg/dL (1.9-2.7)
[2020-06-25] MEDS ORDERED: Magnesium Sulfate 2 gm BAG 2 GM/50 ML BAG IVPB ONE (14:03)
[2020-06-25] MEDS ORDERED: Lorazepam PYXIS KEY PRN (14:05)
[2020-06-25] MEDS ORDERED: LORazepam 2 mg VIAL 1 ml IV PUSH ONE (14:05)
[2020-06-25] MEDS ORDERED: Metoprolol Tartrate 5 mg VIAL 5 ml VIAL (1 mg/ml) IV ONE (14:06)
[2020-06-25 14:10] LABS: Alcohol, S < 10 mg/dL (<10)
[2020-06-25] MEDS ORDERED: Heparin 5000 UNITS/ML 1 mL VIAL SUBCUT SCH (15:00)
[2020-06-25 15:11] LABS: Troponin I 0.06 ng/mL (<0.03)
[2020-06-25 16:07] LABS: Urine Appearance Cloudy; Urine Bilirubin Negative (Negative); Urine Blood 1+ (Negative); Urine Color Yellow; Urine Glucose Negative (Negative); Urine Ketones 2+ (Negative); Urine Nitrite Negative (Negative); Urine Protein Negative (Negative); Urine Specific Gravity 1.013 (1.010-1.030); Urine Urobilinogen Negative (Negative)
[2020-06-25 16:11] LABS: Urine Bacteria Absent (Absent); Urine Red Blood Cell Trace(0-2/hpf) (Absent); Urine Squamous Epithelial Cell Present (Absent); Urine White Blood Cell Trace(0-5/hpf) (Absent)
[2020-06-25 18:52] LABS: Troponin I 0.14 ng/mL (<0.03)
[2020-06-25 19:25] LABS: TSH Ultra Thyroid Stim Horm 3.39 mcIU/mL (0.34-5.60)
[2020-06-25] MEDS ORDERED: Diltiazem (ADVAN VIAL) 100 MG/100 ML ADDV.BAG IV SCH (23:00)
[2020-06-26 05:59] LABS: ABS Monocytes 0.7 10^3/ul (0-0.8); ABS Neutrophils 3.6 10^3/ul (1.5-7.7); Eosinophil % 0.3 %; Hematocrit 31 % (35-47); Hemoglobin 10.5 g/dL (12.0-16.0); Lymphocyte % 18.2 %; Mean Corpuscular HGB Conc 34 g/dL (31-36); Mean Corpuscular Hemoglobin 28 pg (27-31); Mean Corpuscular Volume 84 fL (80-97); Mean Platelet Volume 7.9 fL (7.4-10.4); Platelet Count 212 10^3/uL (150-450); Red Cell Distribution Width 17 % (10-15); White Blood Count 5.3 10^3/uL (3.5-10.8)
[2020-06-26 06:11] LABS: BUN/Creatinine Ratio 26.3 (8-20); Blood Urea Nitrogen 15 mg/dL (6-24); CO2 Carbon Dioxide 21 mmol/L (22-32); Calcium 8.1 mg/dL (8.6-10.3); EGFR African American 121.1 (>60); EGFR Non-African American 100.1 (>60); Glucose 87 mg/dL (70-100); Potassium 3.5 mmol/L (3.5-5.0); Sodium 140 mmol/L (135-145)
[2020-06-26 06:14] LABS: Anion Gap 6 mmol/L (2-11); Chloride 113 mmol/L (101-111)
[2020-06-26 06:17] LABS: Troponin I 0.22 ng/mL (<0.03)
[2020-06-26 12:03] LABS: Troponin I 0.18 ng/mL (<0.03)
[2020-06-26] MEDS ORDERED: Senna TAB 8.6 mg TAB PO PRN (14:20)
[2020-06-26] MEDS ORDERED: Magnesium Hydroxide LIQ 30 ML UDC PO PRN (14:20)
[2020-06-26] MEDS ORDERED: Polyethylene Glycol 3350 17 GM PACKET PO PRN (14:20)
[2020-06-26] MEDS: Magnesium Hydroxide LIQ 30 ML UDC PO SCH (20:22)
[2020-06-27 09:38] LABS: Anion Gap 7 mmol/L (2-11); BUN/Creatinine Ratio 20.6 (8-20); Blood Urea Nitrogen 14 mg/dL (6-24); CO2 Carbon Dioxide 24 mmol/L (22-32); Calcium 8.8 mg/dL (8.6-10.3); Chloride 107 mmol/L (101-111); EGFR African American 98.8 (>60); EGFR Non-African American 81.7 (>60); Glucose 119 mg/dL (70-100); Magnesium 1.9 mg/dL (1.9-2.7); Potassium 3.7 mmol/L (3.5-5.0); Sodium 138 mmol/L (135-145)
[2020-06-27] MEDS: Magnesium Hydroxide LIQ 30 ML UDC PO SCH ×2 (10:16→20:51)
[2020-06-27] MEDS ORDERED: Iodixanol (CONTRAST) 320 MG/ML 100 ML SDV IV ONE (10:36)
[2020-06-27 11:46] LABS: % Iron Saturation 18 % (15-55); Iron 66 ug/dL (50-212); Total Iron Binding Capacity 372 mcg/dL (250-450); Transferrin 266 mg/dL (203-362); Unsaturated Iron Binding < 357 ug/dL
[2020-06-27 12:12] LABS: Folate 9.07 ng/mL (>3.99)
[2020-06-27 12:13] LABS: Vitamin B12 233 pg/mL (180-914)
[2020-06-28 06:38] LABS: ABS Eosinophils 0.1 10^3/ul (0-0.6); ABS Lymphocytes 1.2 10^3/ul (1.0-4.8); ABS Monocytes 0.5 10^3/ul (0-0.8); ABS Neutrophils 2.3 10^3/ul (1.5-7.7); Hematocrit 34 % (35-47); Hemoglobin 11.3 g/dL (12.0-16.0); Lymphocyte % 28.6 %; Mean Corpuscular HGB Conc 33 g/dL (31-36); Mean Corpuscular Hemoglobin 28 pg (27-31); Mean Corpuscular Volume 84 fL (80-97); Mean Platelet Volume 8.1 fL (7.4-10.4); Nucleated Red Blood Cells % 0.1; Platelet Count 235 10^3/uL (150-450); Red Blood Count 4.05 10^6 /uL (3.70-4.87); Red Cell Distribution Width 17 % (10-15); White Blood Count 4.1 10^3/uL (3.5-10.8)
[2020-06-29 07:01] LABS: BUN/Creatinine Ratio 26.4 (8-20); Calcium 8.7 mg/dL (8.6-10.3); EGFR African American 92.5 (>60); EGFR Non-African American 76.4 (>60); Magnesium 1.9 mg/dL (1.9-2.7); Potassium 3.9 mmol/L (3.5-5.0)
[2020-06-29] MEDS ORDERED: Magnesium Sulfate 2 gm BAG 2 GM/50 ML BAG IVPB ONE (11:29)
[2020-06-29] MEDS ORDERED: Potassium Chloride LIQUID 20 MEQ/15 ML LIQUID PO SCH (12:00)
[2020-06-29] MEDS ORDERED: Thiamine 100 MG/ML 2 ml VIAL 100 MG, Folic Acid 1 MG, Multiple Vitamin IV ADULT 10 ML i... IV ONE (12:00)
[2020-06-29] MEDS: Potassium Chlor 20 meq TAB.ER PO SCH (12:45)
[2020-06-30 06:24] LABS: Magnesium 2.2 mg/dL (1.9-2.7)
[2020-06-30 07:33] LABS: Troponin I 0.03 ng/mL (<0.03)
[2020-06-30 09:04] LABS: CO2 Carbon Dioxide 17 mmol/L (22-32); Calcium 8.6 mg/dL (8.6-10.3); Potassium 4.2 mmol/L (3.5-5.0); Sodium 141 mmol/L (135-145)
[2020-06-30 09:10] LABS: BUN/Creatinine Ratio 21.3 (8-20); Blood Urea Nitrogen 13 mg/dL (6-24); EGFR Non-African American 92.6 (>60); Glucose 87 mg/dL (70-100)
[2020-06-30 09:12] LABS: Anion Gap 12 mmol/L (2-11); Chloride 112 mmol/L (101-111)
[2020-06-30] MEDS: Potassium Chlor 20 meq TAB.ER PO SCH (09:51)
[2020-06-30] MEDS ORDERED: Aminophylline 25 MG/ML VIAL ONE (14:19)
[2020-06-30] MEDS ORDERED: Regadenoson 0.4 MG/5 ML SYRINGE ONE (14:19)
[2020-07-01] MEDS: Potassium Chlor 20 meq TAB.ER PO SCH (08:32)
[2020-07-01 15:16] VITALS: BP 133/72
== END 2020-07-01 16:22 | disposition home or self-care (01) | DRG 308 ==
LOC: ED 12:05 → ICU 14:31 → MEDTELE 06-26 14:33
PROVIDERS: ADMIT Internal Medicine Critical Care Medicine; ATTEND Hospitalist

== ENCOUNTER 2020-08-10 08:22 | Inpatient (IN) ==
[2020-08-10] MEDS ORDERED: Metoprolol Tartrate 5 mg VIAL 5 ml VIAL (1 mg/ml) IV ONE ×3 (08:33→22:54)
[2020-08-10 08:47] LABS: ABS Lymphocytes 0.7 10^3/ul (1.0-4.8); ABS Monocytes 0.5 10^3/ul (0-0.8); ABS Neutrophils 3.3 10^3/ul (1.5-7.7); Eosinophil % 0.7 %; Hematocrit 36 % (35-47); Lymphocyte % 14.6 %; Mean Corpuscular HGB Conc 33 g/dL (31-36); Mean Corpuscular Hemoglobin 29 pg (27-31); Mean Corpuscular Volume 87 fL (80-97); Platelet Count 224 10^3/uL (150-450); Red Blood Count 4.16 10^6 /uL (3.70-4.87); Red Cell Distribution Width 19 % (10-15); White Blood Count 4.5 10^3/uL (3.5-10.8)
[2020-08-10 09:07] LABS: ALT 14 U/L (7-52); AST 18 U/L (13-39); Albumin 3.4 g/dL (3.2-5.2); Albumin/Globulin Ratio 1.5 (1-3); Alkaline Phosphatase 71 U/L (34-104); Anion Gap 11 mmol/L (2-11); BUN/Creatinine Ratio 17.7 (8-20); Blood Urea Nitrogen 14 mg/dL (6-24); CO2 Carbon Dioxide 19 mmol/L (22-32); Calcium 8.4 mg/dL (8.6-10.3); Chloride 110 mmol/L (101-111); EGFR African American 83.1 (>60); EGFR Non-African American 68.7 (>60); Globulin 2.2 g/dL (2-4); Glucose 124 mg/dL (70-100); Magnesium 1.5 mg/dL (1.9-2.7); Potassium 3.6 mmol/L (3.5-5.0); Sodium 140 mmol/L (135-145); Total Protein 5.6 g/dL (6.4-8.9)
[2020-08-10 09:11] LABS: Troponin I 0.05 ng/mL (<0.03)
[2020-08-10] MEDS ORDERED: Magnesium Sulf 4 GM/100 ML IV 4,000 MG/100 ML BAG IVPB ONE (09:12)
[2020-08-10] MEDS ORDERED: Potassium Chloride LIQUID 20 MEQ/15 ML LIQUID PO ONE (10:13)
[2020-08-10 10:29] LABS: Urine Appearance Clear; Urine Bilirubin Negative (Negative); Urine Blood 1+ (Negative); Urine Color Straw; Urine Glucose Negative (Negative); Urine Ketones Trace (Negative); Urine Nitrite Negative (Negative); Urine Protein Negative (Negative); Urine Specific Gravity 1.004 (1.010-1.030); Urine Urobilinogen Negative (Negative)
[2020-08-10 10:33] LABS: Urine Bacteria Absent (Absent); Urine Red Blood Cell Trace(0-2/hpf) (Absent); Urine Squamous Epithelial Cell Present (Absent); Urine White Blood Cell Trace(0-5/hpf) (Absent)
[2020-08-10] MEDS ORDERED: NS 0.9% 500 ml BAG 500 ML IV ONE (11:34)
[2020-08-10 12:12] LABS: Troponin I 0.08 ng/mL (<0.03)
[2020-08-10 17:36] LABS: Troponin I 0.11 ng/mL (<0.03)
[2020-08-10] MEDS ORDERED: Metoprolol Tartrate 5 mg VIAL 5 ml VIAL (1 mg/ml) IV PRN (19:43)
[2020-08-10] MEDS ORDERED: Potassium Chlor 10 meq TAB PO ONE (19:45)
[2020-08-11] MEDS ORDERED: Diltiazem IV push/loading dose 5 MG/ML 5 ML vial (25 mg) IV SLOW PU ONE (00:18)
[2020-08-11 03:27] LABS: ABS Lymphocytes 1.1 10^3/ul (1.0-4.8); ABS Monocytes 0.6 10^3/ul (0-0.8); ABS Neutrophils 3.3 10^3/ul (1.5-7.7); Eosinophil % 0.5 %; Hematocrit 37 % (35-47); Hemoglobin 12.2 g/dL (12.0-16.0); Lymphocyte % 21.7 %; Mean Corpuscular HGB Conc 33 g/dL (31-36); Mean Corpuscular Hemoglobin 29 pg (27-31); Mean Corpuscular Volume 88 fL (80-97); Mean Platelet Volume 8.2 fL (7.4-10.4); Platelet Count 244 10^3/uL (150-450); Red Cell Distribution Width 20 % (10-15); White Blood Count 5.1 10^3/uL (3.5-10.8)
[2020-08-11 03:39] LABS: Anion Gap 10 mmol/L (2-11); CO2 Carbon Dioxide 19 mmol/L (22-32); Calcium 8.6 mg/dL (8.6-10.3); Chloride 111 mmol/L (101-111); INR 1.32 (0.82-1.09); Magnesium 2.3 mg/dL (1.9-2.7); Potassium 4.2 mmol/L (3.5-5.0); Sodium 140 mmol/L (135-145)
[2020-08-11 03:45] LABS: BUN/Creatinine Ratio 19.5 (8-20); Blood Urea Nitrogen 15 mg/dL (6-24); EGFR African American 85.6 (>60); EGFR Non-African American 70.7 (>60); Glucose 84 mg/dL (70-100)
[2020-08-11 04:22] LABS: Troponin I 0.08 ng/mL (<0.03)
[2020-08-11] MEDS ORDERED: Metoprolol Tartrate 5 mg VIAL 5 ml VIAL (1 mg/ml) IV ONE (05:37)
[2020-08-11] MEDS ORDERED: Digoxin IV 0.5 MG/2 ML AMP (0.25 MG/ML) IV SLOW PU ONE ×2 (09:11→09:31)
[2020-08-11] MEDS: Digoxin IV 0.5 MG/2 ML AMP (0.25 MG/ML) ONE ×2 (09:22→09:24)
[2020-08-11] MEDS ORDERED: Midazolam 2 mg/2 ml VIAL 1 mg/ml 2 ml VIAL (2 mg) ONE (10:36)
[2020-08-11] MEDS ORDERED: Propofol 10 MG/ML 20 ML BTL ONE (10:37)
[2020-08-11] MEDS ORDERED: Lidocaine 2% PF 5 ML VIAL ONE (10:37)
[2020-08-11] MEDS: Potassium Chlor 20 meq TAB.ER PO SCH (10:38)
[2020-08-12 09:02] LABS: BUN/Creatinine Ratio 28.4 (8-20); EGFR African American 80.7 (>60); EGFR Non-African American 66.7 (>60); Potassium 4.5 mmol/L (3.5-5.0)
[2020-08-12] MEDS: Potassium Chlor 20 meq TAB.ER PO SCH (09:22)
[2020-08-12 16:56] VITALS: BP 93/45
== END 2020-08-12 17:27 | disposition home or self-care (01) | DRG 310 ==
LOC: MEDTELE 08:22 → ED 08:22 → OBSVTOIN 20:53 → MEDTELE 22:17
PROVIDERS: ADMIT Internal Medicine; ATTEND Internal Medicine

== ENCOUNTER 2021-10-19 10:38 | Inpatient (IN) ==
[2021-10-19] MEDS ORDERED: Metoprolol Tartrate 5 mg VIAL 5 ml VIAL (1 mg/ml) IV ONE ×2 (10:51→11:50)
[2021-10-19 11:22] LABS: ABS Eosinophils 0.1 10^3/ul (0-0.6); ABS Lymphocytes 0.9 10^3/ul (1.0-4.8); ABS Monocytes 0.5 10^3/ul (0-0.8); ABS Neutrophils 2.4 10^3/ul (1.5-7.7); Eosinophil % 3.2 %; Hematocrit 40 % (35-47); Hemoglobin 13.9 g/dL (12.0-16.0); Lymphocyte % 22.8 %; Mean Corpuscular HGB Conc 35 g/dL (31-36); Mean Corpuscular Hemoglobin 31 pg (27-31); Mean Corpuscular Volume 90 fL (80-97); Mean Platelet Volume 8.5 fL (7.4-10.4); Platelet Count 223 10^3/uL (150-450); Red Cell Distribution Width 15 % (10-15); White Blood Count 3.9 10^3/uL (3.5-10.8)
[2021-10-19 12:05] LABS: Albumin/Globulin Ratio 1.7 (1-3); Calcium 8.8 mg/dL (8.6-10.3); Globulin 2.3 g/dL (2-4); Magnesium 1.9 mg/dL (1.9-2.7); Total Bilirubin 0.9 mg/dL (0.2-1.0); Total Protein 6.3 g/dL (6.4-8.9); eGFR CKD-EPI 79.9 (>60)
[2021-10-19] MEDS ORDERED: Digoxin IV 0.5 MG/2 ML AMP (0.25 MG/ML) IV SLOW PU ONE ×2 (15:40→15:53)
[2021-10-19] MEDS ORDERED: Diltiazem (ADVAN VIAL) 100 MG/100 ML ADDV.BAG IV SCH ×2 (16:00→23:00)
[2021-10-19 21:18] LABS: Digoxin 0.5 ng/ml (0.8-2.0)
[2021-10-20 05:30] LABS: ABS Eosinophils 0.1 10^3/ul (0-0.6); ABS Lymphocytes 1.3 10^3/ul (1.0-4.8); ABS Monocytes 0.6 10^3/ul (0-0.8); ABS Neutrophils 2.8 10^3/ul (1.5-7.7); Eosinophil % 2.2 %; Hematocrit 41 % (35-47); Hemoglobin 13.9 g/dL (12.0-16.0); Lymphocyte % 26.6 %; Mean Corpuscular HGB Conc 34 g/dL (31-36); Mean Corpuscular Hemoglobin 31 pg (27-31); Mean Corpuscular Volume 90 fL (80-97); Mean Platelet Volume 8.7 fL (7.4-10.4); Nucleated Red Blood Cells % 0.1; Platelet Count 227 10^3/uL (150-450); Red Blood Count 4.53 10^6 /uL (3.70-4.87); Red Cell Distribution Width 15 % (10-15); White Blood Count 4.8 10^3/uL (3.5-10.8)
[2021-10-20 05:47] LABS: Albumin 3.6 g/dL (3.2-5.2); Albumin/Globulin Ratio 1.6 (1-3); Calcium 8.9 mg/dL (8.6-10.3); Globulin 2.2 g/dL (2-4); Potassium 4.2 mmol/L (3.5-5.0); Total Bilirubin 1.4 mg/dL (0.2-1.0); Total Protein 5.8 g/dL (6.4-8.9); eGFR CKD-EPI 71.5 (>60)
[2021-10-20] MEDS ORDERED: Metoprolol Tartrate 5 mg VIAL 5 ml VIAL (1 mg/ml) IV ONE (11:01)
[2021-10-20] MEDS: Potassium Chlor 10 meq TAB PO SCH (11:15)
[2021-10-20 13:48] LABS: TSH Ultra Thyroid Stim Horm 5.81 mcIU/mL (0.34-5.60)
[2021-10-20 13:51] LABS: Free T4 1.09 ng/dL (0.61-1.12)
[2021-10-20] MEDS ORDERED: Midazolam 5 mg/5 ml VIAL 1 mg/ml 5 ml VIAL (5 mg) ONE ×2 (15:17→16:07)
[2021-10-20] MEDS ORDERED: fentaNYL 100 mcg/2 ml 50 MCG/ML VIAL ONE (15:17)
[2021-10-21 05:47] LABS: ABS Eosinophils 0.1 10^3/ul (0-0.6); ABS Lymphocytes 0.8 10^3/ul (1.0-4.8); ABS Monocytes 0.6 10^3/ul (0-0.8); ABS Neutrophils 5.6 10^3/ul (1.5-7.7); Eosinophil % 1.5 %; Hematocrit 40 % (35-47); Hemoglobin 13.4 g/dL (12.0-16.0); Lymphocyte % 11.5 %; Mean Corpuscular HGB Conc 33 g/dL (31-36); Mean Corpuscular Hemoglobin 30 pg (27-31); Mean Corpuscular Volume 90 fL (80-97); Mean Platelet Volume 8.6 fL (7.4-10.4); Nucleated Red Blood Cells % 0.1; Platelet Count 192 10^3/uL (150-450); Red Blood Count 4.45 10^6 /uL (3.70-4.87); Red Cell Distribution Width 15 % (10-15); White Blood Count 7.1 10^3/uL (3.5-10.8)
[2021-10-21 06:22] LABS: Albumin 3.6 g/dL (3.2-5.2); Albumin/Globulin Ratio 1.7 (1-3); Calcium 8.5 mg/dL (8.6-10.3); Globulin 2.1 g/dL (2-4); Magnesium 1.9 mg/dL (1.9-2.7); Potassium 4.1 mmol/L (3.5-5.0); Total Bilirubin 1.5 mg/dL (0.2-1.0); Total Protein 5.7 g/dL (6.4-8.9); eGFR CKD-EPI 84.1 (>60)
[2021-10-21 07:56] LABS: Direct Bilirubin 0.3 mg/dL (0.03-0.18); Indirect Bilirubin 1.2 mg/dL (0.3-1.0)
[2021-10-21] MEDS: Potassium Chlor 10 meq TAB PO SCH (08:20)
[2021-10-21 10:58] LABS: Urine Appearance Clear; Urine Bilirubin Negative (Negative); Urine Blood 2+ (Negative); Urine Color Yellow; Urine Glucose Negative (Negative); Urine Ketones Trace (Negative); Urine Nitrite Negative (Negative); Urine Protein Negative (Negative); Urine Specific Gravity 1.023 (1.002-1.030); Urine Urobilinogen Negative (Negative)
[2021-10-21 11:09] LABS: Urine Bacteria Absent (Absent); Urine Red Blood Cell 2+(6-10/hpf) (Absent); Urine Squamous Epithelial Cell Present (Absent); Urine Transitional Epithelial Present (Absent); Urine White Blood Cell 1+(6-10/hpf) (Absent)
[2021-10-22] MEDS: Potassium Chlor 10 meq TAB PO SCH (10:17)
[2021-10-23] MEDS: Potassium Chlor 10 meq TAB PO SCH (10:34)
[2021-10-24] MEDS: Potassium Chlor 10 meq TAB PO SCH (09:44)
[2021-10-25 09:13] LABS: Albumin 3.9 g/dL (3.2-5.2); Albumin/Globulin Ratio 1.7 (1-3); Calcium 9.1 mg/dL (8.6-10.3); Globulin 2.3 g/dL (2-4); Potassium 4.4 mmol/L (3.5-5.0); Total Protein 6.2 g/dL (6.4-8.9); eGFR CKD-EPI 84.1 (>60)
[2021-10-25] MEDS: Potassium Chlor 10 meq TAB PO SCH (09:15)
[2021-10-25 10:08] LABS: Magnesium 2.1 mg/dL (1.9-2.7)
[2021-10-25 12:06] VITALS: BP 131/61
== END 2021-10-25 13:28 | disposition home or self-care (01) | DRG 309 ==
LOC: ED 10:38 → SUATTDRO 20:14 → EDHOLD 20:15 → INTOOBSV 20:15 → EDHOLD 21:30 → MEDTELE 22:01
PROVIDERS: ADMIT Hospitalist; ATTEND Internal Medicine

== ENCOUNTER 2022-01-11 14:00 | Inpatient (IN) ==
[2022-01-11] MEDS ORDERED: Lactated Ringers 1000 ml BAG 1,000 ML IV ONE ×2 (14:20→18:09)
[2022-01-11 15:18] LABS: ABS Lymphocytes 0.4 10^3/ul (1.0-4.8); ABS Monocytes 0.7 10^3/ul (0-0.8); ABS Neutrophils 3.7 10^3/ul (1.5-7.7); Hematocrit 44 % (35-47); Hemoglobin 14.3 g/dL (12.0-16.0); Lymphocyte % 8.4 %; Mean Corpuscular HGB Conc 33 g/dL (31-36); Mean Corpuscular Hemoglobin 30 pg (27-31); Mean Corpuscular Volume 90 fL (80-97); Mean Platelet Volume 8.4 fL (7.4-10.4); Nucleated Red Blood Cells % 0.1; Platelet Count 159 10^3/uL (150-450); Red Blood Count 4.83 10^6 /uL (3.70-4.87); Red Cell Distribution Width 15 % (10-15); White Blood Count 4.8 10^3/uL (3.5-10.8)
[2022-01-11 15:40] LABS: INR 1.48 (0.86-1.15)
[2022-01-11 16:07] LABS: Albumin 3.8 g/dL (3.2-5.2); Albumin/Globulin Ratio 1.7 (1-3); Calcium 8.5 mg/dL (8.6-10.3); Digoxin 1.4 ng/ml (0.8-2.0); Globulin 2.3 g/dL (2-4); Potassium 4.6 mmol/L (3.5-5.0); Total Bilirubin 0.7 mg/dL (0.2-1.0); Total Protein 6.1 g/dL (6.4-8.9); eGFR CKD-EPI 61.9 (>60)
[2022-01-11] MEDS ORDERED: Metoprolol Tartrate 5 mg VIAL 5 ml VIAL (1 mg/ml) IV ONE (16:45)
[2022-01-11 17:00] LABS: High Sensitivity Troponin 1 Hr 31 pg/mL (<15)
[2022-01-11] MEDS ORDERED: Amiodarone 150 mg IVPREMIX 150 MG/100 ML BAG IV ONE (18:39)
[2022-01-11] MEDS ORDERED: Ondansetron 4 mg VIAL 2 MG/ML 2 ml VIAL IV PRN (18:39)
[2022-01-11] MEDS ORDERED: .Amiodarone 24HR ONLY IV Protocol Order Note IV ONE (18:39)
[2022-01-11] MEDS ORDERED: Amiodarone 360 MG IVPREMIX 360 MG/200 ML BAG IV SCH (18:55)
[2022-01-11] MEDS ORDERED: Lactated Ringers 1000 ml BAG 1,000 ML IV SCH (19:00)
[2022-01-12] MEDS ORDERED: Amiodarone 360 MG IVPREMIX 360 MG/200 ML BAG IV SCH (00:55)
[2022-01-12 06:48] LABS: Hematocrit 39 % (35-47); Hemoglobin 12.9 g/dL (12.0-16.0); Mean Corpuscular HGB Conc 33 g/dL (31-36); Mean Corpuscular Hemoglobin 30 pg (27-31); Mean Corpuscular Volume 90 fL (80-97); Mean Platelet Volume 8.6 fL (7.4-10.4); Platelet Count 162 10^3/uL (150-450); Red Blood Count 4.28 10^6 /uL (3.70-4.87); Red Cell Distribution Width 15 % (10-15); White Blood Count 3.2 10^3/uL (3.5-10.8)
[2022-01-12 07:20] LABS: Magnesium 1.7 mg/dL (1.9-2.7); Phosphorus 2.7 mg/dL (2.5-5.0); Potassium 4.1 mmol/L (3.5-5.0); eGFR CKD-EPI 83.5 (>60)
[2022-01-12 07:33] LABS: ABS Lymphocytes 0.7 10^3/ul (1.0-4.8); ABS Monocytes 0.7 10^3/ul (0-0.8); ABS Neutrophils 1.7 10^3/ul (1.5-7.7); Eosinophil % 0.3 %; Lymphocyte % 23.4 %; Nucleated Red Blood Cells % 0.1; RBC Morphology Normal (Normal)
[2022-01-12 07:36] LABS: TSH Ultra Thyroid Stim Horm 4.08 mcIU/mL (0.34-5.60)
[2022-01-12] MEDS ORDERED: Magnesium Sulfate 2 gm BAG 2 GM/50 ML BAG IVPB ONE (07:44)
[2022-01-12] MEDS: Potassium Chlor 10 meq TAB PO SCH (08:15)
[2022-01-12] MEDS ORDERED: Flumazenil 0.5 mg/5 ml 0.1 MG/ML 5 ml VIAL ONE (08:32)
[2022-01-12] MEDS ORDERED: Midazolam 2 mg/2 ml VIAL 1 mg/ml 2 ml VIAL (2 mg) ONE (08:32)
[2022-01-12] MEDS ORDERED: Naloxone 0.4 mg VIAL 0.4 mg/ml 1 ml VIAL ONE (08:32)
[2022-01-12] MEDS ORDERED: fentaNYL 100 mcg/2 ml 50 MCG/ML VIAL ONE (08:33)
[2022-01-13] MEDS ORDERED: Lorazepam PYXIS KEY PRN (00:51)
[2022-01-13] MEDS ORDERED: LORazepam 2 mg VIAL 1 ml IV PUSH ONE (00:52)
[2022-01-13] MEDS: Potassium Chlor 10 meq TAB PO SCH (09:38)
[2022-01-13 15:31] VITALS: BP 133/67
== END 2022-01-13 16:27 | DRG 308 ==
LOC: ED 14:00 → EDHOLD 18:49 → SUATTDRO 18:49 → ICU 19:36 → MEDTELE 01-13 04:41
PROVIDERS: ADMIT Internal Medicine; ATTEND Internal Medicine